=== PATIENT | female | born 1955 | race Caucasian/White ===

== ENCOUNTER 2018-03-02 05:50 | Inpatient (IN) | payer BC ==
--- NOTE | 2018-02-21 09:11 | HISTORY AND PHYSICAL ---
DATE OF SERVICE: DATE OF ADMISSION: 03/02/2018. REASON FOR ADMISSION: Left total knee arthroplasty. HISTORY OF PRESENT ILLNESS: The patient is a 63-year-old female with progressively worsening left knee pain and functional disability. She has undergone treatment with injections, anti-inflammatories and activity modification, but reports functional impairment. Due to progressive symptoms, the patient elected to proceed with surgical intervention. Radiographs reveal complete medial and patellofemoral joint space loss with osteophyte formation throughout. REVIEW OF SYSTEMS: No chest pain, no shortness of breath, and no dysuria. PAST MEDICAL HISTORY: Hypothyroidism, reflux, and hypertension. PAST SURGICAL HISTORY: Breast reduction, hysterectomy, left knee arthroscopy, thyroidectomy, tonsillectomy, cholecystectomy, and right total knee arthroplasty. FAMILY HISTORY: Significant for hypertension. PRIMARY CARE PROVIDER: Dr. Domínguez. MEDICATIONS: Levothyroxine, benazepril, and metformin. ALLERGIES: PENICILLIN, CODEINE AND SULFA. SOCIAL HISTORY: The patient drinks alcohol socially. Denies tobacco use. PHYSICAL EXAMINATION: GENERAL: The patient is well developed, well-nourished, in no acute distress. HEENT: Normocephalic, atraumatic. Pupils are equal, round, and react to light. Oropharynx is clear. NECK: Supple, no lymphadenopathy. LUNGS: Clear to auscultation bilaterally. HEART: Regular rate and rhythm. ABDOMEN: Soft, nontender, and nondistended. EXTREMITIES: The left knee demonstrates a slight effusion. There is no erythema or warmth. Range of motion is 0/2/125. There is no varus valgus laxity. Negative anterior and posterior drawer. She is tender along medial femoral condyle and has pain with patellar loading with crepitus noted. She ambulates with an antalgic gait. IMPRESSION: Left knee primary osteoarthritis. PLAN: Left total knee arthroplasty. The risks, benefits, options, ramifications and recovery have been discussed at length with the patient. She understands and wishes to proceed. This will require inpatient admission due to pain, gait abnormalities and gait training. Job ID: [id number] DocumentID: [id number] Dictated Date: 02/21/2018 08:36:17 Textile Stylist Date: 02/21/2018 09:11:14 Dictated By: URBAN JEREZ MD
[~2018-03-02] VITALS: Ht 160 cm; Wt 103.5 kg
[~2018-03-02 05:50] MED LIST: ASP325T; ASPI-586 PO; BENA20TA2 PO; BIOT300T2 PO; BIOTIN PO; BNZ20T PO; BNZ40T PO; CALC625T29 PO; CEPH500C PO; FLAX SEED OIL; GLUC-203 PO; GLUC100016 PO; GLUCOSAMINE PO; KCL10CCR; KRIL1CAP22 PO; LEVO100T7 PO; LVT.05T PO; LVT.1T PO; MAGN125C PO; MEGA RED PO; METF500T5 PO; MULT1TAB63; OMEP20CA12 PO; OMEP20CA6 PO; OXYC-197 PO; POTA2TAB15 PO; PRED10TA PO; Potassium Chloride PO; VITA150T PO; VITAMIN C; VITAMIN E CAPSULE PO; [UNRECOGNIZED DRUG - OTHER] PO; manganese PO
--- OUTSIDE RECORDS SUMMARY | 2018-03-02 05:55 | XMS REPORT | Continuity of Care Document ---
Author Author [facility] Organization [facility] Address Unknown Phone Unavailable Allergies Active Description Code Type Severity Reaction Onset Reported/Identified Relationship to Patient Clinical Status Yes codeine [id number] Drug Allergy Unknown N/A 10/11/2007 Yes Penicillins [id number] Drug Allergy Unknown N/A 10/11/2007 Yes Sulfa (Sulfonamide Antibiotics) [id number] Drug Allergy Unknown N/A 2006 Yes codeine [id number] Drug Allergy Mild JITTERS 02/21/2018 Yes Penicillins [id number] Drug Allergy Mild HIVES 02/21/2018 Yes Sulfa (Sulfonamide Antibiotics) [id number] Drug Allergy Mild LEGS SWELLING 02/21/2018 Medications There is no data. Problems Date Dx Coded Attending Type Code Diagnosis Diagnosed By 09/24/2011 Ot 883.0 09/24/2011 Ot E000.2 09/24/2011 Ot E015.0 09/24/2011 Ot E849.6 09/24/2011 Ot E920.3 05/21/2014 JEANNA HAYNES, CATRINA Herrera Ot 244.9 HYPOTHYROIDISM NOS 05/21/2014 CATRINA MEEKS MD Ot 276.8 HYPOPOTASSEMIA 05/21/2014 CATRINA MEEKS MD Ot 401.9 HYPERTENSION NOS 05/21/2014 JEANNA HAYNES, CATRINA Herrera Ot 682.0 CELLULITIS OF FACE 05/21/2014 CATRINA MEEKS MD Ot 989.5 TOXIC EFFECT VENOM 05/21/2014 CATRINA MEEKS MD Ot E000.8 OTHER EXTERNAL CAUSE STATUS 05/21/2014 CATRINA MEEKS MD Ot E905.1 VENOMOUS SPIDER BITE 05/30/2014 MICAH CATALAN MD Ot 682.0 CELLULITIS OF FACE 01/31/2016 Ot M17.11 UNILATERAL PRIMARY OSTEOARTHRITIS, RIGHT 01/31/2016 Ot R53.83 OTHER FATIGUE 02/03/2016 Ot M17.11 02/03/2016 Ot R53.83 02/08/2016 URBAN JEREZ MD, Ot E03.9 HYPOTHYROIDISM, UNSPECIFIED 02/08/2016 URBAN JEREZ MD, Ot I10 ESSENTIAL (PRIMARY) HYPERTENSION 02/08/2016 URBAN JEREZ MD, Ot K21.9 GASTRO-ESOPHAGEAL REFLUX DISEASE WITHOUT 02/08/2016 URBAN JEREZ MD, Ot M17.11 UNILATERAL PRIMARY OSTEOARTHRITIS, RIGHT 03/11/2016 URBAN JEREZ MD, Ot Z47.1 AFTERCARE FOLLOWING JOINT REPLACEMENT GAFFNEY 03/11/2016 URBAN JEREZ MD, Ot Z96.651 PRESENCE OF RIGHT ARTIFICIAL KNEE JOINT 05/21/2016 URBAN JEREZ MD, Ot Z47.1 AFTERCARE FOLLOWING JOINT REPLACEMENT GAFFNEY 05/21/2016 URBAN JEREZ MD, Ot Z96.651 PRESENCE OF RIGHT ARTIFICIAL KNEE JOINT 02/22/2018 URBAN JEREZ MD, Ot M17.12 UNILATERAL PRIMARY OSTEOARTHRITIS, LEFT 02/22/2018 URBAN JEREZ MD, Ot R53.83 OTHER FATIGUE 02/22/2018 URBAN JEREZ MD, Ot Z01.810 ENCOUNTER FOR PREPROCEDURAL CARDIOVASCUL 02/22/2018 URBAN JEREZ MD, Ot Z01.811 ENCOUNTER FOR PREPROCEDURAL RESPIRATORY 02/22/2018 URBAN JEREZ MD, Ot Z01.812 ENCOUNTER FOR PREPROCEDURAL LABORATORY E 02/22/2018 URBAN JEREZ MD, Ot Z11.2 ENCOUNTER FOR SCREENING FOR OTHER BACTER Procedures Code Description Performed By Performed On 2ICU3B1 REPLACE OF R KNEE JT WITH SYNTH SUB, [facility] 02/05/2016 Results Test Result Range Methicillin resistant Staphylococcus aureus (MRSA) screening culture - 12:15 Methicillin resistant Staphylococcus aureus (MRSA) screening culture NEG NRG Complete blood count (CBC) with automated white blood cell (WBC) differential - 02/21/18 12:20 Blood leukocytes automated count (number/volume) 6.1 10*3/uL 4.3-11.0 Blood erythrocytes automated count (number/volume) 4.72 10*6/uL 4.35-5.85 Venous blood hemoglobin measurement (mass/volume) 14.2 g/dL 11.5-16.0 Blood hematocrit (volume fraction) 43 % 35-52 Automated erythrocyte mean corpuscular volume 90 [foz_us] 80-99 Automated erythrocyte mean corpuscular hemoglobin (mass per erythrocyte) 30 pg 25-34 Automated erythrocyte mean corpuscular hemoglobin concentration measurement ( mass/volume) 33 g/dL 32-36 Automated erythrocyte distribution width ratio 13.5 % 10.0-14.5 Automated blood platelet count (count/volume) 282 10*3/uL 130-400 Automated blood platelet mean volume measurement 10.8 [foz_us] 7.4-10.4 Automated blood neutrophils/100 leukocytes 56 % 42-75 Automated blood lymphocytes/100 leukocytes 35 % 12-44 Blood monocytes/100 leukocytes 7 % 0-12 Automated blood eosinophils/100 leukocytes 1 % 0-10 Automated blood basophils/100 leukocytes 1 % 0-10 Blood neutrophils automated count (number/volume) 3.4 10*3 1.8-7.8 Blood lymphocytes automated count (number/volume) 2.2 10*3 1.0-4.0 Blood monocytes automated count (number/volume) 0.4 10*3 0.0-1.0 Automated eosinophil count 0.1 10*3/uL 0.0-0.3 Automated blood basophil count (count/volume) 0.1 10*3/uL 0.0-0.1 PT panel in platelet poor plasma by coagulation assay - 02/21/18 12:20 Prothrombin time (PT) in platelet poor plasma by coagulation assay 13.3 s 12.2-14.7 INR in platelet poor plasma or blood by coagulation assay 1.0 0.8-1.4 Comprehensive metabolic panel - 02/21/18 12:20 Serum or plasma sodium measurement (moles/volume) 141 mmol/L 135-145 Serum or plasma potassium measurement (moles/volume) 4.4 mmol/L 3.6-5.0 Serum or plasma chloride measurement (moles/volume) 105 mmol/L 98-107 Carbon dioxide 26 mmol/L 21-32 Serum or plasma anion gap determination (moles/volume) 10 mmol/L 5-14 Serum or plasma urea nitrogen measurement (mass/volume) 17 mg/dL 7-18 Serum or plasma creatinine measurement (mass/volume) 0.91 mg/dL 0.60-1.30 Serum or plasma urea nitrogen/creatinine mass ratio 19 NRG Serum or plasma creatinine measurement with calculation of estimated glomerular filtration rate > NRG Serum or plasma glucose measurement (mass/volume) 98 mg/dL 70-105 Serum or plasma calcium measurement (mass/volume) 10.2 mg/dL 8.5-10.1 Serum or plasma total bilirubin measurement (mass/volume) 0.4 mg/dL 0.1-1.0 Serum or plasma alkaline phosphatase measurement (enzymatic activity/volume) 90 U/L 40-136 Serum or plasma aspartate aminotransferase measurement (enzymatic activity/ volume) 43 U/L 5-34 Serum or plasma alanine aminotransferase measurement (enzymatic activity/volume ) 51 U/L 0-55 Serum or plasma protein measurement (mass/volume) 8.0 g/dL 6.4-8.2 Serum or plasma albumin measurement (mass/volume) 4.8 g/dL 3.2-4.5 Erythrocyte sedimentation rate by westergren method - 02/21/18 12:20 Erythrocyte sedimentation rate by westergren method 12 mm 0-30 Blood type T Indirect antibody screen panel - 02/21/18 12:20 ABO+Rh group ON NRG Blood group antibody screen NEGATIVE NRG Complete urinalysis with reflex to culture - 02/21/18 12:25 Urine color determination YELLOW NRG Urine clarity determination CLEAR NRG Urine pH measurement by test strip 6 5-9 Specific gravity of urine by test strip 1.010 1.016- 1.022 Urine protein assay by test strip, semi-quantitative NEGATIVE NEGATIVE Urine glucose detection by automated test strip NEGATIVE NEGATIVE Erythrocytes detection in urine sediment by light microscopy NEGATIVE NEGATIVE Urine ketones detection by automated test strip NEGATIVE NEGATIVE Urine nitrite detection by test strip NEGATIVE NEGATIVE Urine total bilirubin detection by test strip NEGATIVE NEGATIVE Urine urobilinogen measurement by automated test strip (mass/volume) NORMAL NORMAL Urine leukocyte esterase detection by dipstick NEGATIVE NEGATIVE Automated urine sediment erythrocyte count by microscopy (number/high power field) NONE NRG Automated urine sediment leukocyte count by microscopy (number/high power field ) NONE NRG Bacteria detection in urine sediment by light microscopy NEGATIVE NRG Squamous epithelial cells detection in urine sediment by light microscopy NONE NRG Crystals detection in urine sediment by light microscopy NONE NRG Casts detection in urine sediment by light microscopy NONE NRG Mucus detection in urine sediment by light microscopy NEGATIVE NRG Complete urinalysis with reflex to culture NO NRG Encounters ACCT No. Visit Date/Time Discharge Status Pt. Type Provider Facility Loc./Unit Complaint [id number] 02/21/2018 11:47:00 02/21/2018 13:14:00 DIS Outpatient URBAN JEREZ MD [facility] PREOP LEFT KNEE OSTEOARTHRITIS [id number] 05/21/2016 13:00:00 05/21/2016 15:43:00 DIS Outpatient URBAN JEREZ MD [facility] REHAB HX OF TKA [id number] 02/05/2016 06:02:00 02/08/2016 13:40:00 DIS Inpatient URBAN JEREZ MD [facility] 4TH RIGHT KNEE OSTEOARTHRITIS [id number] 05/25/2014 21:15:00 05/30/2014 07:49:00 DIS Outpatient ALAYNA HAYNES, MICAH Anglin [facility] SURG RCR CELLULITIS [id number] 05/18/2014 08:34:00 05/21/2014 11:15:00 DIS Inpatient JEANNA HAYNES, CATRINA Herrera [facility] SURGICAL FACIAL CELLULITIS [id number] 03/02/2018 08:00:00 PEN Preadmit URBAN JEREZ MD LEFT KNEE OSTEOARTHRITIS [id number] 01/31/2016 10:00:00 Document Registration [id number] 09/24/2011 10:48:00 Document Registration
[2018-03-02 06:25] VITALS: BP 143/80
[2018-03-02] MEDS ORDERED: proPOfol 200 MG/20 ML (DIPRIVAN) VIAL IV ONE (06:43)
[2018-03-02] MEDS ORDERED: fentaNYL INJECTION 100 MCG/2 ML AMP ONE ×2 (06:43→07:53)
[2018-03-02] MEDS ORDERED: SEVOFLURANE (ULTANE) 15 ML INHAL SOLN ONE ×6 (06:43→08:48)
[2018-03-02] MEDS ORDERED: ONDANSETRON 4 MG/2 ML (SDV) Z0FRAN ONE (06:43)
[2018-03-02] MEDS ORDERED: LIDOCAINE PF 2% 5 ML (XYLOCAINE) VIAL ONE (06:43)
[2018-03-02] MEDS ORDERED: MIDAZOLAM 2 MG/2 ML (VERSED) VIAL ONE (06:43)
[2018-03-02] MEDS ORDERED: CEFUROXIME INJECTION 1,500 MG in NS (IVPB) 100 ML IV ONE (07:00)
[2018-03-02] MEDS ORDERED: raNItidine 50 MG/2 ML INJ (ZANTAC) IV ONE (07:00)
[2018-03-02] MEDS ORDERED: CEFUROXIME 1.5 GM (ZINACEF) VIAL ONE (07:01)
[2018-03-02] MEDS ORDERED: NS (IVPB) 100 ML ONE (07:01)
[2018-03-02] MEDS: LACTATED RINGERS 1,000 ML IV PRN ×2 (07:01→08:33)
[2018-03-02] MEDS ORDERED: ROCURONIUM 10 MG/ML 5 ML SYRINGE IV ONE (07:01)
[2018-03-02] MEDS ORDERED: FAMOTIDINE 20MG/2ML IV (PEPCID) ONE (07:04)
[2018-03-02] MEDS ORDERED: ONDANSETRON 4 MG/2 ML (SDV) Z0FRAN IVP PRN ×2 (07:15→09:30)
[2018-03-02] MEDS ORDERED: morphine PCA 30 MG/30 ML VIAL IV PRN (07:15)
[2018-03-02] MEDS ORDERED: ACETAMINOPHEN 325 MG TABLET/CAPLET (TYLENOL) PO PRN (07:15)
[2018-03-02] MEDS ORDERED: FAMOTIDINE 20MG/2ML IV (PEPCID) IV ONE (07:15)
[2018-03-02] MEDS ORDERED: diphenhydrAMINE 50 MG/ML INJ (BENADRYL) IVP PRN (07:15)
--- NOTE | 2018-03-02 07:25 | Progress Note-Pre Operative ---
Pre-Operative Progress Note H&P Reviewed The H&P was reviewed, patient examined and no changes noted. Date Seen by Provider: March 02, 2018 Time Seen by Provider: 07:15 Date H&P Reviewed: March 02, 2018 Time H&P Reviewed: 07:11 Pre-Operative Diagnosis: left knee primary osteoarthritis URBAN JEREZ MD March 02, 2018 07:25
--- NOTE | 2018-03-02 07:26 | Progress Note-Post Operative ---
Post-Operative Progess Note Surgeon (s)/Environmental Scientist (s) Surgeon URBAN JEREZ MD Environmental Scientist: Sixto Pagan Pre-Operative Diagnosis left knee primary osteoarthritis Post-Operative Diagnosis left knee primary osteoarthritis Procedure & Operative Findings Date of Procedure 03/02/18 Procedure Performed/Findings left total knee arthroplasty Anesthesia Type GETA Estimated Blood Loss Estimated blood loss (mL): minimal Specimens/Packing Specimens Removed none Packing: none URBAN JEREZ MD March 02, 2018 07:26
[2018-03-02] MEDS ORDERED: OXYC-197 PO (07:27)
[2018-03-02] MEDS ORDERED: INTRA-ARTICULAR IU ONE ×5 (07:30)
--- NOTE | 2018-03-02 07:30 | D/C HH Face to Face Order ---
D/C Face to Face Orders Instructions for Patient Patient Instructions/FollowUp: three weeks Physician to follow Patient: three weeks Discharge Diet for Home: Regular Diet, ADA Diet Patient Data-Allergies,Ht & Wt Patient Allergies: Coded Allergies: Penicillins (Verified Allergy, Mild, HIVES, 02/21/18) Sulfa (Sulfonamide Antibiotics) (Verified Allergy, Mild, LEGS SWELLING, ) codeine (Verified Allergy, Mild, JITTERS, 02/21/18) Height (Feet): 5 Height (Inches): 3.00 Weight (Pounds): 228 Weight (Ounces): 3.0 Home Health Need/Face to Face Date of Face to Face: March 02, 2018 Clinical Findings: Instability, Muscle weakness, Non or partial weight bearing , Pain with ambulation, Unsteady gait I have seen Pt [id number]: Yes Discharged To: Home Diagnosis/Conditions: left total knee arthroplasty Patient is Homebound due to: Vicki fall risk due to instabilty, Pain w/ ambulation Homebound Status Due to the above stated illness, injury or surgical procedure (medical condition or diagnosis) and associated clinical findings, the patient is homebound because of his/her inability to leave home except with aid of a supportive device and/or person AND leaving the home requires a considerable and taxing effort or is medically contraindicated. Pt req the following assistanc: Walker Home Health Nursing Orders Home Health Services Order: Physical Therapy-Evaluate & Treat Therapy Orders Therapy Orders: Physical Therapy, PT to assess for OT Therapy Specific Orders: Eval assistive deivces, Teach enviro modifications/ safety, Gait training, Increase strength/endurance, Provider maintenance therapy , Restore ROM Certify Stmt I certify that this patient is under my care and that I, a nurse practitioner or a physician; a legal document assistant working with me, had a face to face encounter that - meets the physician face to face encounter requirements with this patient as dated. URBAN JEREZ MD March 02, 2018 07:30
[2018-03-02] MEDS ORDERED: morphine INJ 10 MG/ML 1ML (SYR OR VIAL) ONE (09:00)
[2018-03-02] MEDS: morphine INJ 10 MG/ML 1ML (SYR OR VIAL) IVP PRN ×2 (09:24→09:35)
[2018-03-02 10:10] VITALS: BP 162/79
--- NOTE | 2018-03-02 10:23 | Diagnostic Imaging Report ---
EXAMINATION: Left knee in OR at 0934 hours. INDICATION: Total knee replacement, knee pain. TECHNIQUE: AP and lateral views were obtained. COMPARISON: There are no prior studies available for comparison. FINDINGS: There is a total knee prosthesis in place. There are also skin lex along the anterior aspect of the knee joint and there is gas in the soft tissues about the knee. There is no fracture or acute bony abnormality evident. The lateral view does show a small 8 mm fairly well-defined oval density interposed between the prosthetic components in the posterior half of the knee joint. This finding cannot be identified with certainty on the AP view and this could represent a loose body. There is some type of external support device in place. IMPRESSION: 1. There is no evidence for an acute bony abnormality. The prosthetic components appear to be in good position. 2. There is a question of a loose body in the posterior half of the knee joint. If further study is desired, then a 4 view plain film exam of the left knee should be obtained when the patient's condition permits. Dictated by: Dictated on workstation # [id number]
--- NOTE | 2018-03-02 10:37 | Progress Note-Standard ---
Standard Progress Note Progress Notes/Assess & Plan Date Seen by Provider: March 02, 2018 Time Seen by Provider: 09:30 Progress/Assessment & Plan post op check No complaints denies paresthesias radiographs--HW well positioned without fracture LLE--dressing in place. Intact DF and PF of toes and ankle with sensation intact throughout. 2 plus DP pulse with brisk cap refill s/p LTKA mobilize as able URBAN JEREZ MD March 02, 2018 10:37
--- NOTE | 2018-03-02 10:44 | Physical Therapy Progress Note ---
Therapy Progress Note CPM and PADS in place 0-45 degrees with polar pack in place. 1 visit CPM/PADS 10 min ([id number]) DAVIDE PALAFOX PT March 02, 2018 10:44
[2018-03-02] MEDS: NS IV 1000 ML 1,000 ML IV SCH ×3 (10:49→22:52)
[2018-03-02] MEDS: SENNA W/DOCUSATE (SENOKOT S) TABLET PO SCH ×2 (10:59→20:25)
[2018-03-02 12:00] VITALS: BP 163/72
--- NOTE | 2018-03-02 14:57 | Consultation-Hospitalist ---
HPI History of Present Illness: HPI/Chief Complaint The patient is a 63-year-old white female who had her left knee replaced today. She has previously had a right total knee replacement. She reports that she has hypertension and has recently been started on metformin. She has no other real concerns. Source: patient Exam Limitations: no limitations Date Seen 03/02/18 Attending Physician Aris Morris MD PCP Main [facility] MD Referring Physician Date of Admission March 02, 2018 at 05:50 Home Medications & Allergies Home Medications Reviewed patient Home Medication Reconciliation performed by pharmacy medication reconciliations factory focus technician and/or nursing. Patients Allergies have been reviewed. Allergies Allergies Coded Allergies Penicillins (Verified Allergy, Mild, HIVES, 02/21/18) Sulfa (Sulfonamide Antibiotics) (Verified Allergy, Mild, LEGS SWELLING, ) codeine (Verified Allergy, Mild, JITTERS, 02/21/18) Past [id number] Hx Past Med/Social Hx: Reviewed Nursing Past Med/Soc Hx Patient Social History Alcohol Use: Occasionally Uses Recreational Drug Use: No Smoking Status: Never a Smoker Physical Abuse Screen: No Sexual Abuse: No Recent Foreign Travel: No Contact w/other who traveled: No Recent Hopitalizations: No Recent Infectious Disease Expo: No Immunizations Up To Date Tetanus Booster (TDap): Less than 5yrs Date of Pneumonia Vaccine: Jan 30, 2014 Seasonal Allergies Seasonal Allergies: No Past Medical History Currently Using CPAP: Yes Reproductive: No Sexually Transmitted Disease: No HIV/AIDS: No Hysterectomy Gastrointestinal: Gastroesophageal Reflux Musculoskeletal: Arthritis, Chronic Back Pain Endocrine: Hypothyroidsim Loss of Vision: Bilateral Hearing Impairment: Denies History of Blood Disorders: No Adverse Reaction to Blood Jessica: No Family History Arthritis 19 MOTHER Hypertension 19 MOTHER Thyroid disease G8 SISTER Review of Systems Constitutional: see HPI EENTM: no symptoms reported Respiratory: no symptoms reported Cardiovascular: no symptoms reported Gastrointestinal: no symptoms reported Genitourinary: no symptoms reported Musculoskeletal: no symptoms reported Skin: no symptoms reported Psychiatric/Neurological: No Symptoms Reported Physical Exam Physical Exam Vital Signs Vital Signs - First Documented 03/02/18 03/02/18 06:25 11:00 Temp 97.5 Pulse 77 Resp 18 B/P (MAP) 143/80 (101) Pulse Ox 95 O2 Delivery Room Air O2 Flow Rate 2.00 Capillary Refill : General Appearance: No Apparent Distress, WD/WN Eyes: Bilateral Eye Normal Inspection HEENT: Normal ENT Inspection Neck: Full Range of Motion, Normal Inspection, Non Tender, Supple, Carotid Bruit Respiratory: Chest Non Tender, Lungs Clear, Normal Breath Sounds, No Accessory Muscle Use, No Respiratory Distress Cardiovascular: Regular Rate, Rhythm, No Edema, No Gallop, No JVD, No Murmur, Normal Peripheral Pulses Gastrointestinal: Normal Bowel Sounds, No Organomegaly, No Pulsatile Mass, Non Tender, Soft Extremity: Other (left knee in dressing and postop range of motion device) Neurologic/Psychiatric: Alert, Oriented x3, No Motor/Sensory Deficits, Normal Mood/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 Assessment/Plan Assessment and Plan Assess & Plan/Chief Complaint 1.status immediately postop left total knee replacement. 2.hypertension. 3.diabetes mellitus [id number] Clinical Quality Measures DVT/VTE Risk/Contraindication: Risk Factor Score Per Nursin RFS Level Per Nursing on Admit: 4+=Very High COSME JARAMILLO MD March 02, 2018 14:57
[2018-03-02] MEDS: CEFUROXIME INJECTION 750 MG in NS (IVPB) 100 ML IV SCH ×2 (15:14→22:21)
[2018-03-02 15:45] VITALS: BP 136/67
--- NOTE | 2018-03-02 15:47 | Physical Therapy Evaluation ---
PT Evaluation-General Medical Diagnosis Admission Date March 02, 2018 at 05:50 Medical Diagnosis: OA left knee Onset Date: March 02, 2018 Therapy Diagnosis Therapy Diagnosis: weakness; abn gait Height/Weight Height (Feet): 5 Height (Inches): 3.00 Weight (Pounds): 228 Weight (Ounces): 3.0 Precautions Precautions/Isolations: Fall Prevention, Standard Precautions Weight Bear Status Right Lower Extremity: Right Full Weight Bearing Left Lower Extremity: Left Weight Bearing/Tolerated Referral Physician: Alexandra Reason for Referral: Evaluation/Treatment Medical History Pertinent Medical History: GERD, HTN, Hypothroidism Additional Medical History R TKR a few years ago Current History Elective left TKR due to failed conservative treatment Social History Home: Single Level Current Living Status: Spouse Entry Into Home: Stairs With Railing Prior/Core FIM Prior Level of Function Functional [place] Measure 0=Not Assessed/NA 4=Minimal Assistance 1=Total Assistance 5=Supervision or Setup 2=Maximal Assistance 6=Modified [place] 3=Moderate Assistance 7=Complete [place] Bed Mobility: 7 Transfers (B,C,W/C) (FIM): 7 Gait: 7 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 No complaints. "I know the pain will be tomorrow!" Objective Patient Orientation: Person, Place, Time, Situation Problem Solving: Good ROM/Strength ROM Lower Extremities WNL except left knee is 0-90 degrees AAROM Strength Lower Extremities right LE grossly 5/5 ; left LE grossly 3/5. Integumentary/Posture Integumentary refer to nursing notes Bowel Incontinence: No Bladder Incontinence: No Neuromuscular (Tone, Coordination, Reflexes) no noted functional deficits Sensory Hand Dominance: Right Sensation Right Lower Extremit: Impaired Sensation Left Lower Extremity: Impaired Transfers Functional [place] Measure 0=Not Assessed/NA 4=Minimal Assistance 1=Total Assistance 5=Supervision or Setup 2=Maximal Assistance 6=Modified [place] 3=Moderate Assistance 7=Complete [place] Transfers (B, C, W/C) (FIM): 4 Supine to/from Sit: 4 Sit to/from Stand: 4 Gait Mode of Locomotion: Walk Anticipated Mode of Locomotion: Walk Gait (FIM): 2 Distance (FIM): 9=194-05 ft Distance: 125 ft Gait Level of Assist: 4 (cga for safety) Gait Assistive Device: FWW Comments/Gait Description step to gait with the right LE Balance Sitting Static: Good Sitting Dynamic: Good Standing Static: Good Standing Dynamic: Good Treatment Toileted with SBA.; CPM in place 0-45 degrees Assessment/Needs Post elective left TKR. Will beneift from skilled PT for functional mobilty, ROM and strength Rehab Potential: Good PT Mcfp Goals Mcfp Goals PT Mcfp Goals Time Frame: March 07, 2018 Transfers (B,C,W/C) (FIM): 6 Gait (FIM): 6 Gait distance (FIM): 3=150 ft Gait Assistive Device: FWW Stairs (FIM): 2 PT Plan Problem List Problem List: Activity Tolerance, Functional Strength, Safety, Balance, Gait, Transfer Treatment/Plan Treatment Plan: Continue Plan of Care Treatment Plan: Bed Mobility, Education, Functional Activity Nick, Functional Strength, Gait, Safety, Therapeutic Exercise, Transfers Treatment Duration: March 07, 2018 Frequency: 11 times per week Estimated Hrs Per Day: 1 hour per day Patient and/or Family Agrees t: Yes Safety Risks/Education Patient Education: Safety Issues Teaching Recipient: Patient Teaching Methods: Discussion Response to Teaching: Return Demonstration Discharge Recommendations Therapy D/C Recommendations: Physical Therapy Home Care Time/GCodes Time In: 1420 Time Out: 1425 Total Billed Treatment Time: 25 Total Billed Treatment visit EVM 15 GT 10 CAROL ROSSI PT March 02, 2018 15:47
--- NOTE | 2018-03-02 16:06 | OPERATIVE REPORT ---
DATE OF SERVICE: 03/02/2018 PREOPERATIVE DIAGNOSIS: Left knee primary osteoarthritis. POSTOPERATIVE DIAGNOSIS: Left knee primary osteoarthritis. PROCEDURE: Left total knee arthroplasty. SURGEON: Aris Jerez MD IDENTITY ACCESS MANAGEMENT ARCHITECT: KAREN Lester, who assisted throughout the procedure and closed the incision. ANESTHESIA: General endotracheal by Kinjal Multani CRNA. TOURNIQUET TIME: Approximately 63 minutes at 300 mmHg. ESTIMATED BLOOD LOSS: Minimal. DRAINS: None. COMPLICATIONS: None. POSTOPERATIVE PLAN: Routine protocol. The patient was transferred to the recovery room awake and in stable condition. MATERIALS: MicroPort cemented size 4 femur, cemented size 4 tibia with a 12 mm insert and cemented size 32 patellar button. STATEMENT OF MEDICAL NECESSITY: The patient is a 63-year-old female with longstanding progressive left knee pain. She has undergone treatment with injections, anti-inflammatories and rest. Radiographs revealed severe medial patellofemoral arthrosis. She reported functional impairment and failure to improve with conservative measures and because of this, the patient elected to proceed with total knee arthroplasty. DESCRIPTION OF PROCEDURE: After risks and benefits of the procedure were discussed and questions were answered, an Informed consent was signed and placed on chart. The operative site was confirmed in THE preoperative holding area initialed by the surgeon. The patient transported to the operating room. After adequate levels of general endotracheal anesthetic were obtained, a timeout was called confirming the operative site. The left lower extremity was prepped and draped in the usual sterile fashion with the leg elevated and the knee flexed. Tourniquet inflated to 300 mmHg. A standard anterior approach was utilized. Hemostasis was obtained with cautery. A medial parapatellar arthrotomy was performed leaving 1 cm cuff on the patella for later reattachment. A portion of the fat pad was resected. A subperiosteal release was performed in the proximal medial tibia being careful to stay on the bony surface. The ACL was resected. An intramedullary guide was passed into the femur. The distal cutting block was placed and distal cut was made. The femur sized to a size 4. The 4 cutting block was placed parallel to the epicondylar axis and cuts were made from posterior to anterior. A subperiosteal release was then carefully performed on the posterior distal femur, being careful to stay on the bony surface. The intramedullary guide was then passed into the tibia. The cutting block was placed. The drop mitch transected the intermalleolar axis and the cut was made. The baseplate was placed and again the drop mitch was then transected the intramedullary axis. This was then prepared with a drill and keel punch. The trials were inserted. The trochlear cut was made on the femur. A 12 mm insert was placed. The patella was then prepared using the free hand technique by resecting 10 mm off the undersurface. The peg guide was placed and the peg holes were drilled. The 32 trial was placed. The knee was taken through range of motion. Full extension was easily obtained, 120 degrees of flexion with gravity was easily obtained. There was no anterior/posterior or medial/lateral laxity in flexion or extension. The patella tracked well. The trials were removed. The joint was irrigated with pulse lavage. The periarticular block was placed in the posterior capsule, medial and lateral retinaculum extensor mechanism and subcutaneous tissues. The bone ends were irrigated and dried. The tibial baseplate was cemented in position. Excess of cement was removed. Superior surface was irrigated and dried and the polyethylene insert was placed. Distal femur was irrigated and dried and the femoral prosthesis was cemented into position. Excessive cement was removed. The knee was brought out into full extension until the cement had cured. The undersurface of the patella was irrigated and dried. The patellar button was cemented into position. Excessive cement was removed. Once the cement had cured, the knee was taken through range of motion. Full extension was easily obtained, 120 degrees of flexion with gravity was easily obtained. There was no anterior/posterior or medial/lateral laxity in flexion or extension. The joint was further irrigated with pulse lavage. The arthrotomy was closed with #2 Tevdek in [id number] interrupted fashion. The knee was then flexed. Patella tracked well with no undue tension noted at the repair site. Subcutaneous tissues were irrigated with pulse lavage using a total of 6 liters throughout the procedure. A 0 Vicryl was used for deep subcutaneous tissue, 2-0 Vicryl for the superficial subcutaneous tissue, lex used on the skin. A soft dressing was applied. The tourniquet was deflated and the patient was transported to the recovery room awake and in stable condition. Job ID: [id number] DocumentID: [id number] Dictated Date: 03/02/2018 09:15:13 Property Specialist Date: 03/02/2018 16:05:49 Dictated By: ARIS JEREZ MD
[2018-03-02 19:45] VITALS: BP 126/61
[2018-03-02] MEDS: oxyCODONE/APAP 5/325MG (PERCOCET 5) TABLET PO PRN (22:22)
[2018-03-02 23:24] VITALS: BP 121/58
[2018-03-03 03:27] VITALS: BP 122/58
[2018-03-03] MEDS: oxyCODONE/APAP 5/325MG (PERCOCET 5) TABLET PO PRN ×4 (03:29→18:28)
[2018-03-03] MEDS: MULTIVIT W/MINERALS TAB (THERAGRAN M) PO SCH (06:08)
[2018-03-03 06:30] LABS: HEMOGLOBIN 10.5 G/DL (11.5-16.0)
[2018-03-03 08:00] VITALS: BP 140/63
--- NOTE | 2018-03-03 08:00 | Progress Note-Standard ---
Standard Progress Note Progress Notes/Assess & Plan Date Seen by Provider: March 03, 2018 Time Seen by Provider: 07:59 Progress/Assessment & Plan post op check No complaints denies paresthesias radiographs--HW well positioned without fracture LLE--dressing in place. Intact DF and PF of toes and ankle with sensation intact throughout. 2 plus DP pulse with brisk cap refill s/p LTKA mobilize as able Final Diagnosis No complaints Vital Signs Date Time Temp Pulse Resp B/P (MAP) Pulse Ox O2 Delivery O2 Flow Rate FiO2 03/03/18 06:09 18 03/03/18 03:27 99.3 73 20 122/58 (79) 94 Nasal Cannula 2.00 03/02/18 23:24 98.2 67 18 121/58 (79) 95 Nasal Cannula 2.00 03/02/18 20:21 Nasal Cannula 2.00 03/02/18 19:45 98.3 63 17 126/61 (82) 96 Nasal Cannula 2.00 03/02/18 17:38 18 03/02/18 16:06 1 Nasal Cannula 03/02/18 15:45 97.8 62 18 136/67 (90) 92 Nasal Cannula 2.00 03/02/18 12:00 97.6 66 20 163/72 (102) 97 Nasal Cannula 2.00 03/02/18 11:00 Nasal Cannula 2.00 03/02/18 10:53 18 03/02/18 10:10 97.0 70 20 162/79 (106) 94 Room Air I & O 03/03/18 07:00 Intake Total 5340 ml Balance 5340 ml Laboratory Tests Test 03/03/18 06:10 Range/Units Hemoglobin 10.5 L 11.5-16.0 G/DL Hematocrit 33 L 35-52 % LLE--dressing intact. NVI distally. No calf tenderness s/p LTKA doing well PT/OT URBAN JEREZ MD March 03, 2018 08:00
[2018-03-03] MEDS: ENOXAPARIN 30 MG/0.3 ML (LOVENOX) SYR SC SCH ×2 (09:27→20:03)
[2018-03-03] MEDS: SENNA W/DOCUSATE (SENOKOT S) TABLET PO SCH ×2 (09:28→20:02)
[2018-03-03] MEDS: ASPIRIN E.C. 81 MG (ECOTRIN) TAB PO SCH (09:28)
--- NOTE | 2018-03-03 10:21 | Physical Therapy Daily Note ---
PT Daily Note-Current Subjective Patient is in bed and agrees to PT. Pain Numeric Pain Scale: 7 Location: Left Location Body Site: Knee Pain Description: Acute Mental Status Patient Orientation: Normal For Age Attachments: Polar Pack, IV Transfers Functional [place] Measure 0=Not Assessed/NA 4=Minimal Assistance 1=Total Assistance 5=Supervision or Setup 2=Maximal Assistance 6=Modified [place] 3=Moderate Assistance 7=Complete IndependenceIRFPAI Quality Coding Scale 6 Independent with activity with or without an assistive device 5 Patient requires set up or clean up by helper. Patient completes activity by themselves 4 Supervision or touching assist (CGA). [place] provide cues , steadying assist 3 The helper provides less than half the effort to complete the activity 2 The helper provides more than half the effort to complete the activity 1 Dependent. The helper does all the effort to complete an activity 7 Patient refused to complete or attempt activity 9 The patient did not perform the activity before the current illness or injury 88 Not attempted due to Medical conditions or safety concerns Transfers (B, C, W/C) (FIM): 5 Scootin Rollin Supine to/from Sit: 5 Sit to/from Stand: 5 Weight Bearing Right Lower Extremity: Right Full Weight Bearing Left Lower Extremity: Left Weight Bearing/Tolerated Gait Training Gait (FIM): 2 Distance (FIM): 9=945-17 ft Distance: 100' Gait Level of Assist: 5 Gait Persons Needed: 1 Gait Assistive Device: FWW slow, antalgic, step to gait sequence Exercises Supine Ex: Ankle pumps, Quad Set, Heel Slides, Straight leg raise Supine Reps: 15 Seated Therapy Exercises: Ankle pumps, Long arc quads Seated Reps: 15 Treatments CPM 0-60 degrees with polar pack in place after treatment. Assessment Patient progressing with treatment plan and is highly motivated with progress. PT to increase activity as tolerated by patient. PT Developmental Behavioral Physician Goals Developmental Behavioral Physician Goals PT Developmental Behavioral Physician Goals Time Frame: March 07, 2018 Transfers (B,C,W/C) (FIM): 6 Gait (FIM): 6 Gait distance (FIM): 3=150 ft Gait Assistive Device: FWW Stairs (FIM): 2 PT Plan Treatment/Plan Treatment Plan: Continue Plan of Care Treatment Plan: Bed Mobility, Education, Functional Activity Nick, Functional Strength, Gait, Safety, Therapeutic Exercise, Transfers Treatment Duration: March 07, 2018 Frequency: 11 times per week Estimated Hrs Per Day: 1 hour per day Patient and/or Family Agrees t: Yes Time/GCodes Time In: 855 Time Out: 920 Total Billed Treatment Time: 25 Total Billed Treatment 1 visit GT 12 min EX 13 min DAVIDE PALAFOX PT March 03, 2018 10:20
[2018-03-03 12:00] VITALS: BP 129/67
[2018-03-03] MEDS: NS IV 1000 ML 1,000 ML IV SCH (12:21)
--- NOTE | 2018-03-03 12:36 | Progress Note-Hospitalist ---
Subjective HPI/CC On Admission Date Seen by Provider: March 03, 2018 Time Seen by Provider: 12:33 The patient is a 63-year-old white female who had her left knee replaced today. She has previously had a right total knee replacement. She reports that she has hypertension and has recently been started on metformin. She has no other real concerns. Subjective/Events-last exam Pt reports doing well. pain well controlled. No other complaints. Discussed with RN and no concerns. Objective Exam Vital Signs Vital Signs Date Time Temp Pulse Resp B/P (MAP) Pulse Ox O2 Delivery O2 Flow Rate FiO2 03/03/18 08:00 98.9 74 20 140/63 (88) 91 Nasal Cannula 2.00 Capillary Refill : General Appearance: No Apparent Distress, WD/WN Respiratory: Lungs Clear, No Respiratory Distress Cardiovascular: Regular Rate, Rhythm, No Murmur Gastrointestinal: Normal Bowel Sounds, Non Tender, Soft Extremity: Other (left leg in PROM device) Neurologic/Psychiatric: Alert, Oriented x3, Normal Mood/Affect Results/Procedures Lab Laboratory Tests 03/03/18 06:10 Patient resulted labs reviewed. Assessment/Plan Assessment and Plan Assess & Plan/Chief Complaint s/p TKA Diagnosis/Problems Diagnosis/Problems (1) Osteoarthritis of left knee Status: Chronic Assessment & Plan: s/p left TKA manangement per primary PT/OT Lovenox ppx Qualifiers: Osteoarthritis type: unspecified Qualified Codes: M17.12 - Unilateral primary osteoarthritis, left knee (2) Essential (primary) hypertension Status: Chronic Assessment & Plan: Well controlled on no meds currently Trend Clinical Quality Measures DVT/VTE Risk/Contraindication: Risk Factor Score Per Nursin RFS Level Per Nursing on Admit: 4+=Very High CHEYENNE VILLA MD March 03, 2018 12:36
--- NOTE | 2018-03-03 12:45 | Anesthesia-General Post-Op ---
General Patient Condition Mental Status/LOC: Same as Preop Cardiovascular: Satisfactory Nausea/Vomiting: Absent Respiratory: Satisfactory Pain: Controlled Complications: Absent Post Op Complications Complications None Follow Up Care/Instructions Patient Instructions None needed. Anesthesia/Patient Condition Patient Condition Patient is doing well, no complaints, stable vital signs, no apparent adverse anesthesia problems. No complications reported per nursing. D/C home per [facility] Criteria: Yes TANIA BAJWA CRNA March 03, 2018 12:45
--- NOTE | 2018-03-03 14:04 | Occupational Therapy Eval ---
OT Evaluation-General/PLF Medical Diagnosis Admission Date March 02, 2018 at 05:50 Medical Diagnosis: OA left knee/TKA Onset Date: March 02, 2018 Therapy Diagnosis Therapy Diagnosis: Weakness, Decreased ADL skills Height/Weight Height (Feet): 5 Height (Inches): 3.00 Weight (Pounds): 228 Weight (Ounces): 3.0 Precautions Precautions/Isolations: Fall Prevention, Standard Precautions Safety Interventions: None Weight Bear Status Weight Bearing Restriction: Weight Bearing/Tolerated Referral Physician: Alexandra Referral Reason: Activity Tolerance, Self Care, Evaluation/Treatment, Strengthening/ROM Medical History Pertinent Medical History: GERD, HTN, Hypothroidism Additional Medical History Hypothyroidism, reflux, Breast reduction, hysterectomy, thyroidectomy, Right TKA Current History Pt. had elective surgery for OA of left knee. Reviewed History: Yes Social History Home: Single Level Current Living Status: Spouse Entry Into Home: Stairs With Railing Steps Into Home: 3 ADL-Prior Level of Function ADL PLOF Comments Pt. was independent with all activities and basic ADL skills. 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 DME/Equipment Comments Pt. has a walker and tall toilets. 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 states that she is uncomfortable, but does not report pain level. 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 Appearance Pt. sitting up in chair when OT enters room. Mental Status/Objective Patient Orientation: Person, Place, Time, Situation Current Hand Dominance: Right Upper Extremity ROM WFL ADL-Treatment Functional [place] Measure 0=Not Assessed/NA 4=Minimal Assistance 1=Total Assistance 5=Supervision or Setup 2=Maximal Assistance 6=Modified [place] 3=Moderate Assistance 7=Complete IndependenceIRFPAI Quality Coding Scale 6 Independent with activity with or without an assistive device 5 Patient requires set up or clean up by helper. Patient completes activity by themselves 4 Supervision or touching assist (CGA). [place] provide cues , steadying assist 3 The helper provides less than half the effort to complete the activity 2 The helper provides more than half the effort to complete the activity 1 Dependent. The helper does all the effort to complete an activity 7 Patient refused to complete or attempt activity 9 The patient did not perform the activity before the current illness or injury 88 Not attempted due to Medical conditions or safety concerns Transfers (B, C, W/C) (FIM): 5 Pt. is up in chair. Declines bathing at this time, but states that she will do it later. Daughter present. Pt. unable to reach feet to doff socks, but states that she will have assist from daughter and spouse. Pt. not interested at this time in ADL equipment training. Pt. states that she has not had a BM yet, but does not feel that she will have difficulty cleansing self once she does. No further OT warranted at this time. Let pt. and daughter know that if she should have other questions, to let this OT know to come back for further ADL training. Thank you for the referral. Education OT Patient Education: Progress toward Goal/Update tx plan, Purpose of tx/ functional activities, Reviewed precautions, Rehab process, Transfer techniques Teaching Recipient: Patient, Family Teaching Methods: Demonstration, Discussion Response to Teaching: Verbalize Understanding, Return Demonstration OT Short Term Goals Short Term Goals 1=Demonstrate adherence to instructed precautions during ADL tasks. 2=Patient will verbalize/demonstrate understanding of assistive devices/ modifications for ADL. 3=Patient will improve strength/tolerance for activity to enable patient to perform ADL's. OT Residential Goals Risk Control Product Liability Director Goals Time Frame: March 03, 2018 Additional Goals: 2-Verbalize Understanding 1=Demonstrate adherence to instructed precautions during ADL tasks. 2=Patient will verbalize/demonstrate understanding of assistive devices/ modifications for ADL. 3=Patient will improve strength/tolerance for activity to enable patient to perform ADL's. OT Education/Plan Problem List/Assessment Assessment: No Skilled OT Needs ID'd Discharge Recommendations Plan/Recommendations: Discontinue OT Therapy D/C Recommendations: Home w/ Family Support Target Placement Home with daughter and spouse. Treatment Plan/Plan of Care Treatment,Training & Education: Yes Treatment Duration: March 03, 2018 Frequency: 1 time per week Estimated Hrs Per Day: .25 hour per day Agreement: Yes Rehab Potential: Good Time/GCodes Start Time: 13:10 Stop Time: 13:30 Total Time Billed (hr/min): 20 Billed Treatment Time 1, BECKY GODFREY OT March 03, 2018 14:04
--- NOTE | 2018-03-03 15:19 | Physical Therapy Daily Note ---
PT Daily Note-Current Subjective Agreeable to PT. No complaints. Transfers Functional [place] Measure 0=Not Assessed/NA 4=Minimal Assistance 1=Total Assistance 5=Supervision or Setup 2=Maximal Assistance 6=Modified [place] 3=Moderate Assistance 7=Complete IndependenceIRFPAI Quality Coding Scale 6 Independent with activity with or without an assistive device 5 Patient requires set up or clean up by helper. Patient completes activity by themselves 4 Supervision or touching assist (CGA). [place] provide cues , steadying assist 3 The helper provides less than half the effort to complete the activity 2 The helper provides more than half the effort to complete the activity 1 Dependent. The helper does all the effort to complete an activity 7 Patient refused to complete or attempt activity 9 The patient did not perform the activity before the current illness or injury 88 Not attempted due to Medical conditions or safety concerns Transfers (B, C, W/C) (FIM): 4 Supine to/from Sit: 4 Sit to/from Stand: 5 Weight Bearing Right Lower Extremity: Right Full Weight Bearing Left Lower Extremity: Left Weight Bearing/Tolerated Gait Training Gait (FIM): 2 Distance (FIM): 4=227-45 ft Distance: 125 Gait Assistive Device: FWW step to gait with the right LE; decreased heel strike and toe off right and tends to keep left knee slightly flexed during gait. Exercises Supine Ex: Quad Set, Short Arc Quads Supine Reps: 10 Seated Therapy Exercises: Ankle pumps, Hamstring Curls (knee flexion slide) Seated Reps: 10 Treatments Toileted with SBA for transfers. CPM 0-66 degrees Assessment Current Status: Good Progress Increased gait and distance. PT Shelter Goals Shelter Goals PT Ethanol Maintenance Mechanic Goals Time Frame: March 07, 2018 Transfers (B,C,W/C) (FIM): 6 Gait (FIM): 6 Gait distance (FIM): 3=150 ft Gait Assistive Device: FWW Stairs (FIM): 2 PT Plan Problem List Problem List: Activity Tolerance, Functional Strength, Safety, Gait, Transfer, ROM Treatment/Plan Treatment Plan: Continue Plan of Care Treatment Plan: Bed Mobility, Education, Functional Activity Nick, Functional Strength, Gait, Safety, Therapeutic Exercise, Transfers Treatment Duration: March 07, 2018 Frequency: 11 times per week Estimated Hrs Per Day: 1 hour per day Patient and/or Family Agrees t: Yes Safety Risks/Education Patient Education: Safety Issues Teaching Recipient: Patient Teaching Methods: Discussion Response to Teaching: Return Demonstration Discharge Recommendations Therapy D/C Recommendations: Physical Therapy Home Care Time/GCodes Time In: 1425 Time Out: 1500 Total Billed Treatment Time: 35 Total Billed Treatment visit EX 20 GT 15 CAROL ROSSI PT March 03, 2018 15:19
[2018-03-03 15:40] VITALS: BP 153/69
[2018-03-03 19:15] VITALS: BP 147/67
[2018-03-04] VITALS: BP 137/72
[2018-03-04] MEDS: NS IV 1000 ML 1,000 ML IV SCH (00:48)
[2018-03-04 04:00] VITALS: BP 141/67
[2018-03-04 05:01] LABS: HEMOGLOBIN 10.2 G/DL (11.5-16.0)
[2018-03-04] MEDS: oxyCODONE/APAP 5/325MG (PERCOCET 5) TABLET PO PRN ×4 (06:24→21:26)
[2018-03-04] MEDS: MULTIVIT W/MINERALS TAB (THERAGRAN M) PO SCH (06:24)
--- NOTE | 2018-03-04 07:11 | Progress Note-Standard ---
Standard Progress Note Progress Notes/Assess & Plan Date Seen by Provider: March 04, 2018 Time Seen by Provider: 07:10 Progress/Assessment & Plan post op check No complaints denies paresthesias radiographs--HW well positioned without fracture LLE--dressing in place. Intact DF and PF of toes and ankle with sensation intact throughout. 2 plus DP pulse with brisk cap refill s/p LTKA mobilize as able Final Diagnosis No complaints Vital Signs Date Time Temp Pulse Resp B/P (MAP) Pulse Ox O2 Delivery O2 Flow Rate FiO2 03/04/18 06:00 18 03/04/18 04:00 99.1 82 18 141/67 (91) 94 Room Air 03/04/18 00:00 98.6 76 18 137/72 (93) 93 Room Air 03/03/18 21:15 93 Nasal Cannula 2.00 03/03/18 20:03 100.7 03/03/18 19:15 100.7 81 20 147/67 (93) 95 Room Air 03/03/18 18:00 18 03/03/18 15:40 99.5 75 18 153/69 (97) 92 Nasal Cannula 2.00 03/03/18 12:00 99.8 80 20 129/67 (87) 92 Nasal Cannula 2.00 03/03/18 08:00 98.9 74 20 140/63 (88) 91 Nasal Cannula 2.00 I & O 03/04/18 07:00 Intake Total 2020 ml Output Total 2800 ml Balance -780 ml Laboratory Tests Test 03/04/18 04:45 Range/Units Hemoglobin 10.2 L 11.5-16.0 G/DL Hematocrit 31 L 35-52 % LLE--incision clean and dry. Neg Bruno's Neg SLR s/p LTKA progressing well continue PT/OT likely Dc tomorrow URBAN JEREZ MD March 04, 2018 07:11
[2018-03-04] MEDS ORDERED: morphine INJ 4 MG/ML 1 ML (VIAL/SYRINGE) IVP PRN (07:15)
[2018-03-04 08:00] VITALS: BP 149/66
--- NOTE | 2018-03-04 09:36 | Physical Therapy Daily Note ---
PT Daily Note-Current Subjective Patient agrees to PT. Pain Numeric Pain Scale: 5-Moderate Pain Location: Left Location Body Site: Knee Pain Description: Acute Mental Status Patient Orientation: Normal For Age Transfers Functional [place] Measure 0=Not Assessed/NA 4=Minimal Assistance 1=Total Assistance 5=Supervision or Setup 2=Maximal Assistance 6=Modified [place] 3=Moderate Assistance 7=Complete IndependenceIRFPAI Quality Coding Scale 6 Independent with activity with or without an assistive device 5 Patient requires set up or clean up by helper. Patient completes activity by themselves 4 Supervision or touching assist (CGA). [place] provide cues , steadying assist 3 The helper provides less than half the effort to complete the activity 2 The helper provides more than half the effort to complete the activity 1 Dependent. The helper does all the effort to complete an activity 7 Patient refused to complete or attempt activity 9 The patient did not perform the activity before the current illness or injury 88 Not attempted due to Medical conditions or safety concerns Transfers (B, C, W/C) (FIM): 6 Scootin Sit to/from Stand: 6 Weight Bearing Right Lower Extremity: Right Full Weight Bearing Left Lower Extremity: Left Weight Bearing/Tolerated Gait Training Gait (FIM): 6 Distance (FIM): 3=150 ft Distance: 175' Gait Level of Assist: 6 Gait Assistive Device: FWW slow, antalgic, step to gait sequence Exercises Supine Ex: Ankle pumps, Quad Set, Heel Slides Supine Reps: 15 (in recliner) Seated Therapy Exercises: Ankle pumps, Long arc quads Seated Reps: 15 Assessment Patient progressing with treatment plan and will dismiss tomorrow to home after PT in a.m. PT Entry Level Lab Technician Goals Entry Level Lab Technician Goals PT Jail Goals Time Frame: March 07, 2018 Transfers (B,C,W/C) (FIM): 6 Gait (FIM): 6 Gait distance (FIM): 3=150 ft Gait Assistive Device: FWW Stairs (FIM): 2 PT Plan Treatment/Plan Treatment Plan: Continue Plan of Care Treatment Plan: Bed Mobility, Education, Functional Activity Nick, Functional Strength, Gait, Safety, Therapeutic Exercise, Transfers Treatment Duration: March 07, 2018 Frequency: 11 times per week Estimated Hrs Per Day: 1 hour per day Patient and/or Family Agrees t: Yes Discharge Recommendations Therapy D/C Recommendations: Home w/ Family Support, Physical Therapy Home Care Time/GCodes Time In: 851 Time Out: 914 Total Billed Treatment Time: 23 Total Billed Treatment 1 visit GT 13 min EX 10 min DAVIDE PALAFOX PT March 04, 2018 09:36
[2018-03-04] MEDS: ENOXAPARIN 30 MG/0.3 ML (LOVENOX) SYR SC SCH ×2 (09:38→21:26)
[2018-03-04] MEDS: SENNA W/DOCUSATE (SENOKOT S) TABLET PO SCH ×2 (09:38→21:26)
[2018-03-04] MEDS: ASPIRIN E.C. 81 MG (ECOTRIN) TAB PO SCH ×2 (09:38→19:47)
--- NOTE | 2018-03-04 10:35 | Progress Note-Hospitalist ---
Subjective HPI/CC On Admission Date Seen by Provider: March 04, 2018 Time Seen by Provider: 10:34 The patient is a 63-year-old white female who had her left knee replaced today. She has previously had a right total knee replacement. She reports that she has hypertension and has recently been started on metformin. She has no other real concerns. Subjective/Events-last exam Reports doing well. No complaints. Eating and drinking well. Objective Exam Vital Signs Vital Signs Date Time Temp Pulse Resp B/P (MAP) Pulse Ox O2 Delivery O2 Flow Rate FiO2 03/04/18 08:00 99.4 76 18 149/66 (93) 91 Room Air 03/03/18 21:15 2.00 Capillary Refill : General Appearance: No Apparent Distress, WD/WN Respiratory: Lungs Clear, No Respiratory Distress Cardiovascular: Regular Rate, Rhythm, No Murmur Gastrointestinal: Normal Bowel Sounds, Non Tender, Soft Extremity: Other (left leg in passive range of motion device) Neurologic/Psychiatric: Alert, Oriented x3, Normal Mood/Affect Results/Procedures Lab Laboratory Tests 03/04/18 04:45 Patient resulted labs reviewed. Assessment/Plan Assessment and Plan Assess & Plan/Chief Complaint s/p TKA Diagnosis/Problems Diagnosis/Problems (1) Osteoarthritis of left knee Status: Chronic Assessment & Plan: s/p left TKA manangement per primary PT/OT Lovenox ppx Qualifiers: Osteoarthritis type: unspecified Qualified Codes: M17.12 - Unilateral primary osteoarthritis, left knee (2) Essential (primary) hypertension Status: Chronic Assessment & Plan: More elevated this AM Will resume home antihypertensives (3) Hypothyroidism Assessment & Plan: Resume Synthroid Qualifiers: Hypothyroidism type: acquired Qualified Codes: E03.9 - Hypothyroidism, unspecified Clinical Quality Measures DVT/VTE Risk/Contraindication: Risk Factor Score Per Nursin RFS Level Per Nursing on Admit: 4+=Very High CHEYENNE VILLA MD March 04, 2018 10:35 am
[2018-03-04] MEDS: lisINopril 10 MG (PRINIVIL) TABLET PO SCH (11:28)
--- NOTE | 2018-03-04 13:15 | Physical Therapy Daily Note ---
PT Daily Note-Current Subjective Patient is very agreeable to participate with PT. Pain Numeric Pain Scale: 5-Moderate Pain Location: Left Location Body Site: Knee Pain Description: Acute Mental Status Patient Orientation: Normal For Age Transfers Functional [place] Measure 0=Not Assessed/NA 4=Minimal Assistance 1=Total Assistance 5=Supervision or Setup 2=Maximal Assistance 6=Modified [place] 3=Moderate Assistance 7=Complete IndependenceIRFPAI Quality Coding Scale 6 Independent with activity with or without an assistive device 5 Patient requires set up or clean up by helper. Patient completes activity by themselves 4 Supervision or touching assist (CGA). [place] provide cues , steadying assist 3 The helper provides less than half the effort to complete the activity 2 The helper provides more than half the effort to complete the activity 1 Dependent. The helper does all the effort to complete an activity 7 Patient refused to complete or attempt activity 9 The patient did not perform the activity before the current illness or injury 88 Not attempted due to Medical conditions or safety concerns Transfers (B, C, W/C) (FIM): 6 Scootin Sit to/from Stand: 6 Weight Bearing Right Lower Extremity: Right Full Weight Bearing Left Lower Extremity: Left Weight Bearing/Tolerated Gait Training Gait (FIM): 6 Distance (FIM): 3=150 ft Distance: 225' Gait Level of Assist: 6 Gait Assistive Device: FWW antalgic, steady, step to gait sequence Exercises Seated Therapy Exercises: Ankle pumps, Long arc quads Seated Reps: 25 (2 sets) Assessment Patient is compliant with exercise program and ambulation PRN. Plan dismissal in a.m. after PT. PT Stage Set Up Worker Goals Detention Goals PT Detention Goals Time Frame: March 07, 2018 Transfers (B,C,W/C) (FIM): 6 Gait (FIM): 6 Gait distance (FIM): 3=150 ft Gait Assistive Device: FWW Stairs (FIM): 2 PT Plan Treatment/Plan Treatment Plan: Continue Plan of Care Treatment Plan: Bed Mobility, Education, Functional Activity Nick, Functional Strength, Gait, Safety, Therapeutic Exercise, Transfers Treatment Duration: March 07, 2018 Frequency: 11 times per week Estimated Hrs Per Day: 1 hour per day Patient and/or Family Agrees t: Yes Time/GCodes Time In: 1240 Time Out: 1305 Total Billed Treatment Time: 25 Total Billed Treatment 1 visit GT 15 min EX 10 min DAVIDE PALAFOX PT March 04, 2018 13:15
[2018-03-04 16:15] VITALS: BP 138/68
[2018-03-05 00:43] VITALS: BP 132/65
[2018-03-05 06:02] LABS: HEMOGLOBIN 10.2 G/DL (11.5-16.0)
[2018-03-05] MEDS: oxyCODONE/APAP 5/325MG (PERCOCET 5) TABLET PO PRN (06:02)
[2018-03-05] MEDS: MULTIVIT W/MINERALS TAB (THERAGRAN M) PO SCH (06:02)
[2018-03-05] MEDS ORDERED: LEVOTHYROXINE 100 MCG (LEVOTHROID) TAB PO SCH ×2 (06:30→09:00)
[2018-03-05 08:30] VITALS: BP 171/79
--- NOTE | 2018-03-05 08:43 | Physical Therapy Daily Note ---
PT Daily Note-Current Subjective States that she is doing well and thinks she is ready to go home. Transfers Functional [place] Measure 0=Not Assessed/NA 4=Minimal Assistance 1=Total Assistance 5=Supervision or Setup 2=Maximal Assistance 6=Modified [place] 3=Moderate Assistance 7=Complete IndependenceIRFPAI Quality Coding Scale 6 Independent with activity with or without an assistive device 5 Patient requires set up or clean up by helper. Patient completes activity by themselves 4 Supervision or touching assist (CGA). [place] provide cues , steadying assist 3 The helper provides less than half the effort to complete the activity 2 The helper provides more than half the effort to complete the activity 1 Dependent. The helper does all the effort to complete an activity 7 Patient refused to complete or attempt activity 9 The patient did not perform the activity before the current illness or injury 88 Not attempted due to Medical conditions or safety concerns Transfers (B, C, W/C) (FIM): 6 Scootin Supine to/from Sit: 6 Sit to/from Stand: 6 Weight Bearing Right Lower Extremity: Right Full Weight Bearing Left Lower Extremity: Left Weight Bearing/Tolerated Gait Training Gait (FIM): 6 Distance (FIM): 3=150 ft Distance: 300' Gait Level of Assist: 6 Gait Assistive Device: FWW Exercises Supine Ex: LE Protocol Supine Reps: 15 Assessment Current Status: Excellent Progress Patient did well with all activities and should do well with discharge. PT Frontend Engineer Goals Frontend Engineer Goals PT Frontend Engineer Goals Time Frame: March 07, 2018 Transfers (B,C,W/C) (FIM): 6 Gait (FIM): 6 Gait distance (FIM): 3=150 ft Gait Assistive Device: FWW Stairs (FIM): 2 PT Plan Treatment/Plan Treatment Plan: Continue Plan of Care Treatment Plan: Bed Mobility, Education, Functional Activity Nick, Functional Strength, Gait, Safety, Therapeutic Exercise, Transfers Treatment Duration: March 07, 2018 Frequency: 11 times per week Estimated Hrs Per Day: 1 hour per day Patient and/or Family Agrees t: Yes Time/GCodes Time In: 810 Time Out: 840 Total Billed Treatment Time: 30 Total Billed Treatment 1, GT x 20, EX x 10 ANITA MADDEN PT March 05, 2018 08:43
[2018-03-05] MEDS ORDERED: NON-FORMULARY MEDICATION 1 EA EA (Benazepril HCl 20 MG) PO SCH (09:00)
--- NOTE | 2018-03-05 09:37 | Progress Note-Standard ---
Standard Progress Note Progress Notes/Assess & Plan Date Seen by Provider: March 05, 2018 Time Seen by Provider: 09:36 Progress/Assessment & Plan post op check No complaints denies paresthesias radiographs--HW well positioned without fracture LLE--dressing in place. Intact DF and PF of toes and ankle with sensation intact throughout. 2 plus DP pulse with brisk cap refill s/p LTKA mobilize as able Final Diagnosis No complaints Vital Signs Date Time Temp Pulse Resp B/P (MAP) Pulse Ox O2 Delivery O2 Flow Rate FiO2 03/05/18 00:43 99.9 87 20 132/65 (87) 95 Room Air 03/04/18 16:15 98.9 83 18 138/68 (91) 98 Room Air 03/04/18 12:30 18 I & O 03/05/18 07:00 Intake Total 2320 ml Output Total 400 ml Balance 1920 ml Laboratory Tests Test 03/05/18 05:25 Range/Units Hemoglobin 10.2 L 11.5-16.0 G/DL Hematocrit 31 L 35-52 % LLE--neg Lexx's. No calf tenderness. SLR with assistance. wound benign s/p LTKA doing well DC home URBAN JEREZ MD March 05, 2018 09:37
[2018-03-05] MEDS: SENNA W/DOCUSATE (SENOKOT S) TABLET PO SCH (10:03)
[2018-03-05] MEDS: ASPIRIN E.C. 81 MG (ECOTRIN) TAB PO SCH (10:03)
[2018-03-05] MEDS: ENOXAPARIN 30 MG/0.3 ML (LOVENOX) SYR SC SCH (10:03)
[2018-03-05] MEDS: lisINopril 10 MG (PRINIVIL) TABLET PO SCH (10:03)
[2018-03-05 11:45] VITALS: BP 140/63
[2018-03-05 13:20] VITALS: BP 140/63
--- NOTE | 2018-03-05 18:51 | DISCHARGE SUMMARY ---
DATE OF SERVICE: DIAGNOSES: 1. Left knee primary osteoarthritis. 2. Hypothyroidism. 3. Reflux. 4. Hypertension. PROCEDURE: Left total knee arthroplasty. SUMMARY: The patient is a 63-year-old female who underwent a left total knee arthroplasty the day of admission. Postoperatively, she did very well. At the time of discharge, her wound was clean and dry. She had no calf tenderness. Negative Homans sign. She had cleared therapy and had attained independent status. She was tolerating her diet well and tolerating pain with oral pain medication. CONDITION ON DISCHARGE: Good. DISCHARGE DIET: Regular. FOLLOWUP: Followup is in 3 weeks. Discharge medications are home medications, aspirin and Percocet as needed for pain. ACTIVITIES: Weightbearing as tolerated with walker. Job ID: [id number] DocumentID: [id number] Dictated Date: 03/05/2018 09:36:34 Lathe Puller Date: 03/05/2018 18:50:32 Dictated By: URBAN JEREZ MD
== END 2018-03-05 13:20 | disposition home health service (06) | DRG 470 ==
LOC: 4TH 05:50 → SURG 05:51 → 4TH 10:10
PROVIDERS: ADMIT Orthopaedic Surgery; ATTEND Orthopaedic Surgery
PROC: 0SRD0J9 Replacement of Left Knee Joint with Synthetic Substitute, Cemented, Open Approach (ICD-10-PCS; principal; 2018-03-02 07:28)
DX: M17.12 Unilateral primary osteoarthritis, left knee (principal); I10 Essential (primary) hypertension; E03.9 Hypothyroidism, unspecified; K21.9 Gastro-esophageal reflux disease without esophagitis; E11.9 Type 2 diabetes mellitus without complications
CPT/HCPCS: 36415; 73560; 82962; 85014; 85018; 86850; 86900; 86901; 94664

== ENCOUNTER 2018-04-14 13:42 | Outpatient (RCR) | payer BC ==
[~2018-04-14 13:42] MED LIST changes: -BENA20TA2 PO; +BENA20TA7 PO; +BENA40TA5 PO; -BNZ40T PO
== END 2018-05-05 14:33 | disposition home or self-care (01) ==
PROVIDERS: ATTEND Orthopaedic Surgery
DX: Z47.1 Aftercare following joint replacement surgery (principal); Z96.651 Presence of right artificial knee joint